=== PATIENT | male | born 1995 | race Two or more races ===

== ENCOUNTER 2024-08-19 07:58 | Emergency (ER) | payer OTHER, MEDICAID, SELFPAY ==
[2024-08-19 07:59] VITALS: BMI 24.2
[2024-08-19 08:06] VITALS: BP 144/86; PULSE 117; RESP 18; TEMP 36.5; O2SAT 99
--- NOTE | 2024-08-19 08:20 | PD.EDRME ---
Rapid Medical Screening Exam E Arrival date/time: 08/19/24 07:58 29-year-old male history of asthma presents to the emergency department with complaints of chest heaviness, shortness of breath. However adds that last night he was drinking alcohol all night and snorting cocaine. I have greeted and performed a focused initial assessment of this patient. Initial appropriate labs ordered at this time. A comprehensive ED assessment and evaluation of the patient and analysis of all test and completion of medical decision making process will be conducted by additional ED provider. Chief Complaint: Shortness of Breath/Dyspnea Time Seen by Provider: 08/19/24 08:04 Vital signs: Vital Signs Temperature 97.7 F 08/19/24 08:06 Pulse Rate 117 H 08/19/24 08:06 Respiratory Rate 18 08/19/24 08:06 Blood Pressure 144/86 H 08/19/24 08:06 Pulse Oximetry (%) 99 08/19/24 08:06 Oxygen Delivery Method Room Air 08/19/24 08:06
--- NOTE | 2024-08-19 08:21 | XR_ITS ---
Examination: PA lateral chest 2 views TECHNIQUE: Upright PA lateral chest 2 views Exam date and time: August 19, 2024 0830 hours INDICATIONS: Shortness of breath today, cocaine drug use this morning FINDINGS: Normal heart size The lungs are clear. Mild hyperexpansion No pneumonia or pulmonary edema IMPRESSION: No pneumonia or pulmonary edema
[2024-08-19 08:44] LABS: Basophils # (Auto) 0.1 Thou/mm3 (0.0-0.2); Basophils % (Auto) 1 % (0-2.5); Eosinophils % (Auto) 0 % (0-10); Hematocrit 48.4 % (41.0-53.0); Hemoglobin 17.2 g/dL (13.5-16.0); Immature Granulocytes % (Auto) 0 % (0-0); Immature Granulocytes Auto 0.01 Thou/mm3 (0.00-0.00); Lymphocytes # (Auto) 1.2 Thou/mm3 (1.0-4.8); Lymphocytes % (Auto) 14 % (10-50); Mean Corpuscular HGB Conc 35.5 g/dl (31.0-37.0); Mean Corpuscular Hemoglobin 30.9 pg (25.0-35.0); Mean Corpuscular Volume 87 fL (80-100); Monocytes # (Auto) 0.3 Thou/mm3 (0.0-0.8); Monocytes % (Auto) 4 % (0-12); Neutrophils # (Auto) 7.2 Thou/mm3 (1.8-7.7); Neutrophils % (Auto) 82 % (37-80); Nucleated Red Blood Cell % 0 /100 WBC (0); Platelet Count 305 Thou/mm3 (140-440); RDW Standard Deviation 40.1 fL (35.1-43.9); Red Blood Count 5.56 Miln/mm3 (4.50-5.90); White Blood Count 8.7 Thou/mm3 (3.8-10.6)
[2024-08-19 09:02] LABS: Alanine Aminotransferase 16 U/L (10-49); Albumin, Serum 5.1 gm/dL (3.5-5.0); Albumin/Globulin Ratio 1.5 (1.2-2.2); Alkaline Phosphatase 80 U/L (46-116); Anion Gap 10 (7-16); Aspartate Amino Transferase 19 U/L (0-34); BUN/Creatinine Ratio 9 Ratio (12-20); Bilirubin,Total 1.1 mg/dL (0.3-1.2); Blood Urea Nitrogen 7 mg/dL (9-23); Calcium 10.1 mg/dL (8.3-10.6); Calcium (Corrected) 10.1 mg/dL (8.5-10.1); Carbon Dioxide 27.8 mMol/L (20.0-31.0); Chloride 105 mMol/L (98-107); Creatinine (Component) 0.8 mg/dL (0.6-1.3); Estimated Creatinine Clearance 136.2 mL/min (>60); Globulin 3.4 gm/dL (2.3-3.5); Glucose 105 mg/dL (74-106); Lipase 40 U/L (12-53); Osmolality,Calculated 282 (275-295); Potassium 3.8 mMol/L (3.4-5.1); Sodium 143 mMol/L (136-145); Total Protein 8.5 gm/dL (5.7-8.2); Troponin I < 0.002 ng/mL (0.0-0.045); eGFR > 60 See Note
--- NOTE | 2024-08-19 09:10 | PD.EDSOB ---
ED SOB =RME/HPI General Chief Complaint: Shortness of Breath/Dyspnea Stated Complaint: SOB AFTER USING COCAINE Time Seen by Provider: 08/19/24 08:04 Arrival date/time: 08/19/24 07:58 RME / HPI RME / HPI Narrative: 08/19/24 07:58 29-year-old male history of asthma presents to the emergency department with complaints of chest heaviness, shortness of breath. However adds that last night he was drinking alcohol all night and snorting cocaine. I have greeted and performed a focused initial assessment of this patient. Initial appropriate labs ordered at this time. A comprehensive ED assessment and evaluation of the patient and analysis of all test and completion of medical decision making process will be conducted by additional ED provider. DR. KEVIN PEPPER ED EVALUATION 29 year old male with history of asthma presents to the ED for evaluation of shortness of breath beginning this morning. Described feeling he was unable to get a full breath in and it was hard to breathe with no known modifying factors. Patient admits to using cocaine and drinking beer since 5:30 last night . No other associated symptoms or complaints. States since arriving to the ED his symptoms have improved. Denies fevers, chills, cough, chest pain, abdominal pain, vomiting, or urinary symptoms. Related Data Previous Rx's ?Medication ?Instructions ?Recorded albuterol sulfate 90 mcg/actuation 2 puff inhalation Q6HR PRN 09/16/16 aerosol inhaler (ProAir HFA) SHORTNESS OF BREATH #1 inh albuterol sulfate 90 mcg/actuation 2 puff inhalation Q4HR PRN dyspnea 02/05/17 aerosol inhaler (ProAir HFA) #1 inh epinephrine 0.3 mg/0.3 mL 0.3 ml subcut .0 PRN 11/16/23 injection, auto-injector hypersensitivity reaction #2 ea famotidine 20 mg tablet 20 mg PO QDAY #10 tabs 11/16/23 prednisone 50 mg tablet 50 mg PO QDAY Allergic reaction #4 11/16/23 tabs Allergies Allergy/AdvReac Type Severity Reaction Status Date / Time No Known Allergies Allergy Verified 08/19/24 08:01 Review of Systems Review of Systems Narrative Review of Systems: Gen: No fever, no chills, no weight loss EYES: No discharge, no visual changes, no pain HEENT: No ear pain, no congestion, no sore throat PULM: + shortness of breath, no cough, no congestion CV: No chest pain, no palpitations, no chest tightness GI: No nausea, no vomiting, no diarrhea, no pain, no constipation : No frequency, no urgency,? no dysuria Musc/skel: No joint pain, no back pain Skin: No rash, no ecchymosis, no lesions Neuro: No weakness, no headache Past Medical History Past Medical History CARDIAC: Negative Congestive Heart Failure RESPIRATORY: Positive Asthma; Negative Chronic Obstructive Pulmonary Disease (COPD) GENITOURINARY: Negative Renal Disease ENDOCRINE: Negative Diabetes Mellitus Type 1 or Diabetes Mellitus Type 2 Social History SMOKING STATUS: Current every day smoker ED Exam Narrative Physical exam: GENERAL APPEARANCE: AxOx4, no obvious distress, nontoxic appearing HEENT: NC, AT. MMM. EOMI, clear conjunctiva, oropharynx clear. NECK: Supple without lymphadenopathy. No stiffness or restricted ROM. HEART: Normal rate and regular rhythm, normal S1/S1, no m/r/g LUNGS: CTAB, moving air well. No crackles or wheezes are heard. ABDOMEN: Soft, nontender, nondistended with good bowel sounds heard. BACK: No midline C/T/L spine pain or deformity, No CVAT, no obvious deformity. EXTREMITIES: Without cyanosis, clubbing or edema. MUSCULOSKELETAL: FROM of all major joints, no chest tenderness NEUROLOGICAL: Grossly nonfocal. Alert and oriented, moving all 4 extremities. CN not formally tested but appear grossly intact. Skin: Warm and dry without any rash. Course Course Course Narrative: chest xray ordered to help determine etiology of shortness of breath. Quality Measures none Orders Category Date Time Status EKG (ED ONLY) *Do not use* NOW Care 08/19/24 08:21 Completed EKG (ED Only) Stat Exams 08/19/24 08:21 Ordered XR chest 2V Stat Exams 08/19/24 08:21 Completed CBC Stat Lab 08/19/24 08:26 Completed Comprehensive Metabolic Panel Stat Lab 08/19/24 08:26 Completed Lipase Stat Lab 08/19/24 08:26 Completed Troponin I Stat Lab 08/19/24 08:26 Completed Reevaluation(s) Reevaluation #1: Patient remains clinically stable throughout the emergency department visit. We reviewed all the results, analysis, and treatment plans. Patient is amenable to discharge. Strict return precautions were outlined. Patient was discharged in stable condition. Time: 09:10 Vital Signs Vital signs: Vital Signs Temperature 97.7 F 08/19/24 08:06 Pulse Rate 117 H 08/19/24 08:06 Respiratory Rate 18 08/19/24 08:06 Blood Pressure 144/86 H 08/19/24 08:06 Pulse Oximetry (%) 99 08/19/24 08:06 Oxygen Delivery Method Room Air 08/19/24 08:06 Pulse ox is 99% on room air which is adequate. Shortness of Breath / Dyspnea MDM Narrative MDM Narrative:: Vee Cardoza am scribing for and in the presence of Dr. Licea. Patient data External records reviewed:: [facility] previous records (I reviewed ED visit on 11/16/2023 ) Clinical information provided by:: patient Social determinants that could affect healthcare access:: substance use (Cocaine and alcohol use ) Patient has the following chronic illnesses:: Asthma How is presenting disease/condition affected by chronic disease/condition?: exacerbated by Evaluation data The following diagnostics were reviewed and interpreted by me:: lab results, radiology exam(s) and EKG tracing(s) (Normal sinus rhythm, HR 93, normal axis, normal interval, no acute ST or T-wave changes, no STEMI. ) Lab and/or radiology exams considered but not ordered:: None Interpretation Summary: Ordering Physician: Wyatt [facility] Escobar Date of Service: 08/19/24 Procedure(s): XR chest 2V Accession Number(s): [id number] cc: Chase Guzman MD; Eligio Baer MD; Wyatt MarshU[facility]ene Escobar~ Examination: PA lateral chest 2 views TECHNIQUE: Upright PA lateral chest 2 views Exam date and time: August 19, 2024 0830 hours INDICATIONS: Shortness of breath today, cocaine drug use this morning FINDINGS: Normal heart size The lungs are clear. Mild hyperexpansion No pneumonia or pulmonary edema IMPRESSION: No pneumonia or pulmonary edema Dictated By: Chase Guzman MD Signed By: <Electronically signed by Chase Guzman MD in OV> 08/19/24 0908 Medications / Prescriptions Medications or Prescriptions considered but not ordered:: None Medication administrations:: None Consultations Consultation(s) initiated? (list below): No Diagnosis Shortness of Breath Differential Diagnosis: community acquired pneumonia, asthma with exacerbation and other (drug abuse, alcohol abuse) Most likely diagnosis given after review of the tests above:: cocaine abuse alcohol abuse Admission Indicated Admission indicated?: not indicated Explain why admission is indicated or not indicated:: Does not meet admission criteria Admission Request Was there a request for admission?: No Disposition Plan Disposition Plan: Discharge Discharge Attestation Discharge Attestation: The patient and all family members were given an opportunity to ask questions and understood the discharge instructions. Discharge instructions specifically effects, indications for sooner follow up or return to the emergency department, and the expected course of current diagnosis. Patient condition: Stable Discharge Plan Plan Patient Disposition: HOME (Self Care) Prescriptions/Referrals Prescriptions/Med Rec: No Action albuterol sulfate [ProAir HFA] 8.5 GM HFA aerosol inhaler 2 puff Inhalation Q6HR PRN (Reason: SHORTNESS OF BREATH) Qty: 1 0RF albuterol sulfate [ProAir HFA] 8.5 GM HFA aerosol inhaler 2 puff Inhalation Q4HR PRN (Reason: dyspnea) Qty: 1 0RF Rx Instructions: any albuterol ok; dispense with spacer prednisone 50 mg tablet 50 mg PO QDAY Qty: 4 0RF famotidine 20 mg tablet 20 mg PO QDAY Qty: 10 0RF epinephrine 0.3 mg/0.3 mL auto-injector 0.3 ml subcut .0 PRN (Reason: hypersensitivity reaction) Qty: 2 1RF Referrals: Eligio Baer MD [Primary Care Provider] - In 1 week Problem List Clinical Impression: Cocaine abuse, Alcohol abuse Patient/Caregiver Discharge Instructions Education Materials: ED Cocaine And Crack Abuse, ED Alcohol Abuse Additional Instructions: Do not use illicit drugs or drink alcohol in excess. Consider stopping all illicit drugs and alcohol completely for better health. You can follow-up with your primary care doctor and/or [facility] if you feel ready for help with alcohol and/or drug rehabilitation. Feel free return to the emergency department sooner symptoms worsen or if he notes any new, concerning issues. Print Language: Yoruba Stand Alone Forms: Mary Award Info., Patient Portal Info Letter
[2024-08-19 09:41] VITALS: BP 124/76; PULSE 98; RESP 18; TEMP 36.6; O2SAT 100
--- NOTE | 2024-08-19 09:42 | PC.NURSE ---
pt requesting group social worker for alcohol/drug rehabilitation resources. long term care social worker notified. .
--- NOTE | 2024-08-19 09:53 | PC.SS ---
ASW met with the patient regarding resources for substance use. The patient presented as alert and oriented to self, place and situation. The patient reports that he uses cocaine on occasion and drinks alcohol daily. The patient is agreeable to receive resources and was explained how services could be accessed. Patient declines a referral to services at this time. Patient reports history of symptoms related to depression. Patient reports no diagnosis or medication taken. Reports substance use as a coping mechanism. Patient was educated on safe substance use and provided AOD and mental health resources. Patient was further assessed for SI and HI. the patient denied this. No signs of audio or visual hallucinations observed. Patient was able to engage and answer questions appropriately .The patient reports he will discharge home with a friend and has reliable transportation. Patient confirmed his sister, Josefa Murillo as his emergency contact if necessary. No further questions at this time.
== END 2024-08-19 09:41 | disposition home or self-care (01) ==
PROVIDERS: Nurse Practitioner Primary Care; Emergency Provider Emergency Medicine; PCP Family Medicine
DX: F14.10 Cocaine abuse, uncomplicated (principal); F10.10 Alcohol abuse, uncomplicated; R06.02 Shortness of breath; R07.89 Other chest pain
CPT/HCPCS: 36415; 71046; 80053; 80307; 81001; 83690; 84484; 85025; 93005; 99283

== ENCOUNTER 2025-04-13 19:13 | Emergency (ER) | payer OTHER, SELFPAY ==
[2025-04-13 19:13] VITALS: BMI 22.3
--- NOTE | 2025-04-13 19:16 | EKG_ITS ---
[facility] Test Date: 2025-04-13 Pat Name: JESSICA MAYER Department: Room: - Gender: Male Private Client Advisor: : 1995 Requested By: ED Temporary Provider Order Number: [id number] Reading MD: ED Temporary Provider Measurements Intervals [place] Rate: 95 P: 70 MT: 144 QRS: 14 QRSD: 83 T: 68 QT: 335 QTc: 423 Interpretive Statements SINUS RHYTHM MINIMAL ST DEPRESSION [0.025+ mV ST DEPRESSION] Compared to ECG 12/16/2022 12:52:01 No significant changes /store/S0/[id number].pdf
[2025-04-13 19:38] VITALS: BP 128/81; PULSE 96; RESP 18; TEMP 36.8; O2SAT 97
--- NOTE | 2025-04-13 20:08 | PD.EDCHEST ---
ED Chest Pain RME/HPI General Chief Complaint: Chest Pain Stated Complaint: CHEST PAIN X10 MINUTES Time Seen by Provider: 04/13/25 20:04 Arrival date/time: 04/13/25 19:13 29M with history of alcohol/drug use presents to ED with 30 min of CP, which is improving. Patient denies URI symptoms. Limitations: no limitations Related Data Previous Rx's ?Medication ?Instructions ?Recorded albuterol sulfate 90 mcg/actuation 2 puff inhalation Q6HR PRN 09/16/16 aerosol inhaler (ProAir HFA) SHORTNESS OF BREATH #1 inh albuterol sulfate 90 mcg/actuation 2 puff inhalation Q4HR PRN dyspnea 02/05/17 aerosol inhaler (ProAir HFA) #1 inh epinephrine 0.3 mg/0.3 mL 0.3 ml subcut .0 PRN 11/16/23 injection, auto-injector hypersensitivity reaction #2 ea famotidine 20 mg tablet 20 mg PO QDAY #10 tabs 11/16/23 prednisone 50 mg tablet 50 mg PO QDAY Allergic reaction #4 11/16/23 tabs Allergies Allergy/AdvReac Type Severity Reaction Status Date / Time No Known Allergies Allergy Verified 04/13/25 19:13 Review of Systems Review of Systems Systems Reviewed: All systems reviewed, normal except as documented Cardiovascular Cardiovascular: Reports as per HPI and Reports chest pain Past Medical History Past Medical History CARDIAC: Negative Congestive Heart Failure RESPIRATORY: Positive Asthma; Negative Chronic Obstructive Pulmonary Disease (COPD) GENITOURINARY: Negative Renal Disease ENDOCRINE: Negative Diabetes Mellitus Type 1 or Diabetes Mellitus Type 2 Social History SMOKING STATUS: Never smoker ED Exam General Limitations: Present no limitations General appearance: Present alert and in no apparent distress Head Head exam: Present atraumatic Neck Neck exam: Present normal inspection, full ROM and trachea midline Chest Chest inspection: Present normal inspection and symmetric chest wall rise Respiratory Respiratory exam: Present normal lung sounds bilaterally Neurological Exam Neurological exam: Present alert and oriented X3 Psychiatric Psychiatric exam: Present normal affect and normal mood Skin Skin exam: Present warm, dry, intact and normal color Course Quality Measures none Orders Category Date Time Status EKG (ED ONLY) *Do not use* NOW Care 04/13/25 19:16 Completed EKG (ED Only) Stat Exams 04/13/25 19:16 Draft XR chest 1V portable Stat Exams 04/13/25 20:54 Completed Alcohol, Blood Medical Stat Lab 04/13/25 20:24 Completed CBC Stat Lab 04/13/25 20:24 Completed Cocci Serology IgM with reflex to IgG [Cocci Serology, Lab 04/13/25 21:31 Received Unk History] Stat Comprehensive Metabolic Panel Stat Lab 04/13/25 20:24 Completed D-Dimer Stat Lab 04/13/25 20:24 Completed Drug Screen,Urine Stat Lab 04/13/25 21:26 Completed Troponin I Stat Lab 04/13/25 20:24 Completed Vital Signs Vital signs: Vital Signs Temperature 98.3 F 04/13/25 19:38 Pulse Rate 96 04/13/25 19:38 Respiratory Rate 18 04/13/25 19:38 Blood Pressure 128/81 04/13/25 19:38 Pulse Oximetry (%) 97 04/13/25 19:38 Oxygen Delivery Method Room Air 04/13/25 19:38 O2 at 97% on RA and WNLs Chest Pain MDM Narrative MDM Narrative:: 29M with history of alcohol/drug use presents to ED with 30 min of CP, which is improving. Patient denies URI symptoms. Physical exam reveals normal WOB, clear lungs, and RRR. Patient is afebrile, calm, and alert. EKG is NSR. No leukocytosis. CMP unremarkable. Trop and D-dimer normal. CXR L lung mass possible [place] Fever or TB. Counseled to return in AM for pending Cocci results and to get TB test done. Patient data External records reviewed:: [facility] previous records Clinical information provided by:: patient Social determinants that could affect healthcare access:: alcohol use Patient has the following chronic illnesses:: alcohol/drug How is presenting disease/condition affected by chronic disease/condition?: exacerbated by Evaluation data The following diagnostics were reviewed and interpreted by me:: lab results, radiology exam(s) and EKG tracing(s) Lab and/or radiology exams considered but not ordered:: ordered Interpretation Summary: above Medications / Prescriptions Medications or Prescriptions considered but not ordered:: not ordered Medication administrations:: n/a Consultations Consultation(s) initiated? (list below): No Diagnosis Chest Pain Differential Diagnosis: fracture of rib, pneumothorax, stable angina, unstable angina pectoris, atypical chest pain, st elevation myocardial infarction, costochondritis, chest pain, biliary colic and other (anxiety, PE, lung mass) Most likely diagnosis given after review of the tests above:: lung mass Admission Indicated Admission indicated?: not indicated Admission Request Was there a request for admission?: No Disposition Plan Disposition Plan: Discharge Discharge Attestation Discharge Attestation: The patient and all family members were given an opportunity to ask questions and understood the discharge instructions. Discharge instructions specifically effects, indications for sooner follow up or return to the emergency department, and the expected course of current diagnosis. Patient condition: Stable Discharge Plan Plan Patient Disposition: HOME (Self Care) Discharge Disposition comment: Stable Prescriptions/Referrals Prescriptions/Med Rec: No Action albuterol sulfate [ProAir HFA] 8.5 GM HFA aerosol inhaler 2 puff Inhalation Q6HR PRN (Reason: SHORTNESS OF BREATH) Qty: 1 0RF albuterol sulfate [ProAir HFA] 8.5 GM HFA aerosol inhaler 2 puff Inhalation Q4HR PRN (Reason: dyspnea) Qty: 1 0RF Rx Instructions: any albuterol ok; dispense with spacer prednisone 50 mg tablet 50 mg PO QDAY Qty: 4 0RF famotidine 20 mg tablet 20 mg PO QDAY Qty: 10 0RF epinephrine 0.3 mg/0.3 mL auto-injector 0.3 ml subcut .0 PRN (Reason: hypersensitivity reaction) Qty: 2 1RF Referrals: Jose Disla MD [Primary Care Provider, Family Practice] - In 1 week Problem List Clinical Impression: Lung mass Patient/Caregiver Discharge Instructions Education Materials: Understanding Coccidioidomycosis Additional Instructions: Please follow-up with PCP within 24-48 hours and return immediately if symptoms worsen. Return tomorrow between 8 AM and 11 AM to follow-up on Cocci test, as well as to get TB testing done. Print Language: Greek Stand Alone Forms: Patient Portal Info Letter LUIS ALFREDO/EDWIN Supervising Physician LUIS ALFREDO/EDWIN Supervising Physician: Dr. Marina
[2025-04-13 20:31] LABS: Basophils # (Auto) 0.1 Thou/mm3 (0.0-0.2); Basophils % (Auto) 1 % (0-2.5); Eosinophils # (Auto) 0.5 Thou/mm3 (0.0-0.5); Eosinophils % (Auto) 6 % (0-10); Hematocrit 43.0 % (41.0-53.0); Hemoglobin 15.1 g/dL (13.5-16.0); Immature Granulocytes Auto 0.02 Thou/mm3 (0.00-0.00); Lymphocytes # (Auto) 1.6 Thou/mm3 (1.0-4.8); Lymphocytes % (Auto) 17 % (10-50); Mean Corpuscular HGB Conc 35.1 g/dl (31.0-37.0); Mean Corpuscular Hemoglobin 31.2 pg (25.0-35.0); Mean Corpuscular Volume 89 fL (80-100); Monocytes # (Auto) 0.5 Thou/mm3 (0.0-0.8); Monocytes % (Auto) 5 % (0-12); Neutrophils # (Auto) 6.9 Thou/mm3 (1.8-7.7); Neutrophils % (Auto) 72 % (37-80); Nucleated Red Blood Cell # 0.00 Thou/mm3 (0.00-0.00); Nucleated Red Blood Cell % 0 /100 WBC (0); Platelet Count 303 Thou/mm3 (140-440); RDW Standard Deviation 40.1 fL (35.1-43.9); Red Blood Count 4.84 Miln/mm3 (4.50-5.90); White Blood Count 9.7 Thou/mm3 (3.8-10.6)
[2025-04-13 20:48] LABS: D-Dimer < 250 ng/mL (<600)
[2025-04-13 20:53] LABS: Alanine Aminotransferase 11 U/L (10-49); Albumin, Serum 4.6 gm/dL (3.5-5.0); Albumin/Globulin Ratio 1.5 (1.2-2.2); Alcohol, Blood Medical 45.7 mg/dL (0-10.0); Alkaline Phosphatase 94 U/L (46-116); Anion Gap 11 (7-16); Aspartate Amino Transferase 19 U/L (0-34); BUN/Creatinine Ratio 11 Ratio (12-20); Bilirubin,Total 0.7 mg/dL (0.3-1.2); Blood Urea Nitrogen 10 mg/dL (9-23); Calcium 9.2 mg/dL (8.3-10.6); Calcium (Corrected) 9.2 mg/dL (8.5-10.1); Carbon Dioxide 27.9 mMol/L (20.0-31.0); Chloride 104 mMol/L (98-107); Creatinine (Component) 0.9 mg/dL (0.6-1.3); Estimated Creatinine Clearance 124.3 mL/min (>60); Globulin 3.0 gm/dL (2.3-3.5); Glucose 85 mg/dL (74-106); Osmolality,Calculated 282 (275-295); Potassium 3.8 mMol/L (3.4-5.1); Sodium 143 mMol/L (136-145); Total Protein 7.6 gm/dL (5.7-8.2); Troponin I < 0.002 ng/mL (0.0-0.045); eGFR > 60 See Note
--- NOTE | 2025-04-13 20:54 | XR_ITS ---
EXAMINATION: PA chest single view TECHNIQUE: Upright PA chest single view Date and time: April 13 0 , 2 hours, comparison Gabriel 22,025 INDICATIONS: Chest pain today. FINDINGS: Prominent opacity in the left suprahilar region Normal heart size Right lung clear. The osseous structures are intact IMPRESSION: Findings most consistent with dense pneumonic consolidation in the left suprahilar region, differential would include coccidioidomycosis, tuberculosis, clinical correlation advised
[2025-04-13 21:47] LABS: Amphetamine/Methamp Scrn,U Negative (Negative); Barbiturate Screen,Urine Negative (Negative); Benzodiazepines Screen,Urine Negative (Negative); Benzoylecgonine Screen, Ur Negative (Negative); Fentanyl Screen,Urine Negative (Negative); Opiate Screen,Urine Negative (Negative); THC Screen,Urine Negative (Negative)
[2025-04-14 13:18] LABS: Cocci Serology, IgM Negative (Negative)
[2025-04-15 10:59] LABS: Cocci Serology, IgG Negative (Negative)
== END 2025-04-13 22:40 | disposition home or self-care (01) ==
PROVIDERS: Physician Assistant; Emergency Provider Emergency Medicine; PCP Family Medicine
DX: B38.9 Coccidioidomycosis, unspecified (principal)
CPT/HCPCS: 36415; 71045; 80053; 80307; 80320; 84484; 85025; 85379; 86331; 86635; 93005; 99283; G0480

== ENCOUNTER 2025-04-14 10:17 | Emergency (ER) | payer OTHER, SELFPAY ==
[2025-04-14 10:26] VITALS: BP 121/87; PULSE 89; RESP 19; TEMP 36.9; O2SAT 99
[2025-04-14 10:27] VITALS: BMI 24.0
--- NOTE | 2025-04-14 10:31 | XR_ITS ---
Examination: CT chest, without intravenous contrast. Sagittal and coronal 2-D reconstructions. Exam date and time: April 14, 2025, 1038 hours INDICATIONS: Chest pain shortness of breath today, dense pneumonic consolidation in the left suprahilar region on chest film April 13, 2025 CTDI:vol (mGy) 9.55 DLP: (mGycm) 384 Technique: Multiple 3.0 mm axial sections of the chest to been obtained. Bone and lung density settings are obtained. Sagittal and coronal 2-D reconstructions have been obtained. Low dose protocols were performed. One or more of the following dose reduction techniques were used; automated exposure control, adjustment of the mA and/or KV according to patient size, use of iterative reconstruction technique. Findings: No thoracic aortic aneurysm dilatation Pulmonary artery segments are not enlarged. Irregular parenchymal disease in the anterior segment left upper lobe for instance axial image 106 6 mm pulmonary nodule posterior left upper lobe image 163 No pulmonary edema Right lung clear No visualized liver or splenic lesion Contracted gallbladder The osseous arteries are intact IMPRESSION: Irregular parenchymal disease in the anterior segment left upper lobe most consistent with pneumonia with pulmonary nodule as above Recommend follow-up chest imaging to document clearing
--- NOTE | 2025-04-14 10:32 | PD.EDRME ---
Rapid Medical Screening Exam RME Arrival date/time: 04/14/25 10:17 29-year-old male presents to the Emergency Department today stating he was instructed return today for TB testing as well as cocci results from yesterday Chief Complaint: General Adult/Misc Complain Vital signs: Vital Signs Temperature 98.4 F 04/14/25 10:26 Pulse Rate 89 04/14/25 10:26 Respiratory Rate 19 04/14/25 10:26 Blood Pressure 121/87 H 04/14/25 10:26 Pulse Oximetry (%) 99 04/14/25 10:26 Oxygen Delivery Method Room Air 04/14/25 10:26
[2025-04-14] MEDS: TUBERCULIN PPD INJ 5 UNIT/0.1 ML DOSE ID (12:31)
--- NOTE | 2025-04-14 12:36 | PC.NURSE ---
TB skin test administered to patient's right forearm. Instructed patient to have TB test read in 48-72 hours.
[2025-04-14 12:40] VITALS: BP 121/77; PULSE 78; RESP 19; TEMP 36.4; O2SAT 99
--- NOTE | 2025-04-14 14:16 | PD.EDADULT ---
ED General RME/HPI General Chief complaint: General Adult/Misc Complain Stated complaint: RETURNING FOR COCCI TEST THAT WAS RECOMMENDED YEST Time Seen by Provider: 04/14/25 11:15 Arrival date/time: 04/14/25 10:17 Here for cocci results and TB testing, patient denies any cough but has mild pain in the left anterior chest when he takes deep breaths. Patient was in the [employer] 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 Denies cough fever chills nausea vomiting or shortness of breath. RME / HPI RME / HPI narrative: 04/14/25 10:17 29-year-old male presents to the Emergency Department today stating he was instructed return today for TB testing as well as cocci results from yesterday Related Data Previous Rx's ?Medication ?Instructions ?Recorded albuterol sulfate 90 mcg/actuation 2 puff inhalation Q6HR PRN 09/16/16 aerosol inhaler (ProAir HFA) SHORTNESS OF BREATH #1 inh albuterol sulfate 90 mcg/actuation 2 puff inhalation Q4HR PRN dyspnea 02/05/17 aerosol inhaler (ProAir HFA) #1 inh epinephrine 0.3 mg/0.3 mL 0.3 ml subcut .0 PRN 11/16/23 injection, auto-injector hypersensitivity reaction #2 ea famotidine 20 mg tablet 20 mg PO QDAY #10 tabs 11/16/23 prednisone 50 mg tablet 50 mg PO QDAY Allergic reaction #4 11/16/23 tabs amoxicillin 875 mg-potassium 1 tab PO BID #20 tabs 04/14/25 clavulanate 125 mg tablet Allergies Allergy/AdvReac Type Severity Reaction Status Date / Time No Known Allergies Allergy Verified 04/14/25 10:19 Review of Systems Review of Systems Narrative Review of Systems: GEN: No fever, no chills, no weight loss EYES: No discharge, no visual changes, no pain HEENT: No ear pain, no congestion, no sore throat PULM: No shortness of breath, no cough, no congestion CV: No chest pain, no dyspnea on exertion, no palpitations GI: No nausea, no vomiting, no diarrhea, no pain, no constipation : No frequency, no urgency, no dysuria MUSC/SKEL: No joint pain, no back pain SKIN: No rash PSYCH: No hallucinations, no depression HEME/LYMPH: No easy bleeding or bruising tendencies NEURO: No weakness, no headache Past Medical History Past Medical History CARDIAC: Negative Congestive Heart Failure RESPIRATORY: Positive Asthma; Negative Chronic Obstructive Pulmonary Disease (COPD) GENITOURINARY: Negative Renal Disease ENDOCRINE: Negative Diabetes Mellitus Type 1 or Diabetes Mellitus Type 2 Social History SMOKING STATUS: Never smoker ED Exam Narrative Physical exam: [General: Not in any acute distress Head normocephalic HEENT: Within acceptable limits Neck is supple nontender Chest equal chest rise nontender to palpation Respiratory: Clear to auscultation no wheezes crackles or rubs CV: Rate rhythm is regular no murmurs rubs or clicks Abdomen is soft nontender no masses positive bowel sounds all 4 quadrants Back: No CVA tenderness no spinous process tenderness from cervical spine thoracic and lumbar spine Skin: Intact no petechiae rash induration ulceration or crepitus Extremities: Moving all extremity against resistance cap refill less than 2 seconds neurosensory intact Neuro: Awake alert oriented x3 Glascow coma 15 no focal deficits] Course Quality Measures none Orders Category Date Time Status TB [Tuberculin Skin Test (PPD)] q48h Care 04/14/25 10:[address] chest wo con Stat Exams 04/14/25 10:31 Completed Tuberculin Ppd Inj [Tubersol Inj] Med 04/14/25 10:31 Discontinued 5 unit ID [id number] Vital Signs Vital signs: Vital Signs Temperature 98.4 F 04/14/25 10:26 Pulse Rate 89 04/14/25 10:26 Respiratory Rate 19 04/14/25 10:26 Blood Pressure 121/87 H 04/14/25 10:26 Pulse Oximetry (%) 99 04/14/25 10:26 Oxygen Delivery Method Room Air 04/14/25 10:26 Discharge Plan Plan Patient Disposition: HOME (Self Care) Patient condition on transfer: Stable Prescriptions/Referrals Prescriptions/Med Rec: New amoxicillin-pot clavulanate 875-125 mg tablet 1 tab PO BID Qty: 20 0RF No Action albuterol sulfate [ProAir HFA] 8.5 GM HFA aerosol inhaler 2 puff Inhalation Q6HR PRN (Reason: SHORTNESS OF BREATH) Qty: 1 0RF albuterol sulfate [ProAir HFA] 8.5 GM HFA aerosol inhaler 2 puff Inhalation Q4HR PRN (Reason: dyspnea) Qty: 1 0RF Rx Instructions: any albuterol ok; dispense with spacer prednisone 50 mg tablet 50 mg PO QDAY Qty: 4 0RF famotidine 20 mg tablet 20 mg PO QDAY Qty: 10 0RF epinephrine 0.3 mg/0.3 mL auto-injector 0.3 ml subcut .0 PRN (Reason: hypersensitivity reaction) Qty: 2 1RF Referrals: Pan De Los Santos PA-C [Primary Care Provider] - In 1 week Problem List Clinical Impression: Pneumonia, Lymph node enlargement Patient/Caregiver Discharge Instructions Other Activity Instructions:: Take the medication as prescribed follow-up with your primary care doctor return on the regular time for your TB testing if there is a worsening of symptoms return immediately for reevaluation. Education Materials: Lung Anatomy, Lymphadenopathy, ED Pneumonia (Adult) Print Language: Kyrgyz Stand Alone Forms: Mary Award Info., Patient Portal Info Letter, Work/School Release LUIS ALFREDO/EDWIN Supervising Physician REJI Supervising Physician: Orville Velasco ENP MDM Clinical Information Provided by: patient Medical Records reviewed [facility] Meds/Rx considered, not ordered None Labs/Rad/Tests considered, not ordered None Chronic Illness/Social Conditions which may negatively complicate care or outcome(s)-explain: None or not applicable EKG EKG not done Labs Lab(s) Interpretation(s): Cocci titer is negative. Imaging Imaging interpretation: interpreted by me Imaging Interpretation(s): Chest CT shows pneumonia with lymphedema Medication Administration(s) none Medication Administration History Discontinued Medications Tuberculin PPD (Tuberculin Ppd Inj 5 Unit/0.1 Ml Dose) 5 unit ID [id number] Stop: 04/14/25 10:32 Last Admin: 04/14/25 12:31 Dose: 5 unit Documented By: TD Diagnosis Differential Diagnosis ED Complaint MDM: Pneumonia coccidiomycosis chest wall mass
== END 2025-04-14 14:41 | disposition home or self-care (01) ==
PROVIDERS: Emergency Provider Registered Nurse General Practice; PCP Physician Assistant
DX: J18.9 Pneumonia, unspecified organism (principal)
CPT/HCPCS: 71250; 99284